=== PATIENT | female | born 1985 | race Caucasian/White ===

== ENCOUNTER 2016-10-28 19:35 | Emergency (ER) | payer BC, OTHER ==
[2016-10-28 19:56] VITALS: BP 142/90
--- NOTE | 2016-10-28 21:01 | EDM.PDOC ---
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 Staley this past January 2016, and was prescribed progesterone. This induced a menstrual period on 02/22/2016, however, the patient was to follow-up, but did not. She states that she has not had any menstrual periods since. In the meantime, the patient and her are trying to get , although the patient states that she has not taken a test. The patient therefore does not know if she is , and whether what she is currently experiencing is a heavy menstrual period or a miscarriage. She states that she developed suprapubic and low back cramping yesterday afternoon around 13:30, then heavy vaginal bleeding sometime after that. She rates her current bleeding at around one pad per hour, and states that while she is not aware of passing any tissue, she has passed clots. The patient denies urinary symptoms, and is not complaining of lightheadedness. She is . Lower Back Pain Score (Numeric/FACES): 7 - Related Data Allergies Allergy/AdvReac Type Severity Reaction Status Date / Time cefaclor [From Ceclor] Allergy Cannot Verified 10/28/16 19:43 Remember Home Meds: Home Meds . 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: 2 Endocrine/Metabolic History: Reports: Obesity/BMI 30+ - Past Surgical History HEENT Surgical History: Reports: Oral Surgery ([place] teeth extraction), Tonsillectomy GI Surgical History: Reports: Cholecystectomy Female Surgical History: Reports: Section (x 2) Social & Family History - Tobacco Use Smoking Status *Q: Never Smoker Second Hand Smoke Exposure: No - Caffeine Use Caffeine Use: Reports: Coffee, Soda - Alcohol Use Alcohol Use History: Yes Alcohol Use Frequency: Socially - Recreational Drug Use Recreational Drug Use: No - Living Situation & Occupation Living situation: Reports: , with Spouse, with Family (2 sons) 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) ED ROS GENERAL - Review of Systems Review Of Systems: See Below Constitutional: Reports: Chills HEENT: Reports: No Symptoms Respiratory: Reports: No Symptoms Cardiovascular: Reports: No Symptoms Endocrine: Reports: No Symptoms GI/Abdominal: Reports: No Symptoms : Reports: No Symptoms Musculoskeletal: Reports: No Symptoms Skin: Reports: No Symptoms Neurological: Reports: No Symptoms Psychiatric: Reports: No Symptoms Hematologic/Lymphatic: Reports: No Symptoms Immunologic: Reports: No Symptoms ED EXAM, GENERAL - Physical Exam Exam: See Below Exam Limited By: No Limitations General Appearance: Alert, WD/WN, No Apparent Distress Eye Exam: Bilateral Eye: Normal Inspection Ears: Normal External Exam, Hearing Grossly Normal Nose: Normal Inspection, No Blood Throat/Mouth: Normal Inspection, Normal Lips, Normal Voice, No Airway Compromise Head: Atraumatic, Normocephalic Neck: Normal Inspection, Full Range of Motion Respiratory/Chest: No Respiratory Distress, Lungs Clear, Normal Breath Sounds, No Accessory Muscle Use Cardiovascular: Normal Peripheral Pulses, Regular Rate, Rhythm, No Gallop, No JVD, No Murmur, No Rub Peripheral Pulses: 4+: Radial (L), Radial (R) GI/Abdominal: Normal Bowel Sounds, Soft, No Organomegaly, No Distention, No Abnormal Bruit, No Mass, Tender (suprapibic region only. Nontender elsewhere.) , Other (Obese) (Female) Exam: Deferred Rectal (Female) Exam: Deferred Back Exam: Normal Inspection, Full Range of Motion. No: CVA Tenderness (L), CVA Tenderness (R) Extremities: Normal Inspection, Normal Range of Motion, No Pedal Edema, Normal Capillary Refill Neurological: Alert, Oriented, Normal Cognition, No Motor/Sensory Deficits Psychiatric: Normal Affect Skin Exam: Warm, Dry, Intact, Normal Color, No Rash Lymphatic: No Adenopathy Course - Vital Signs Last Recorded V/S: Last Vital Signs Temp 37.0 C 10/28/16 19:53 Pulse 92 10/28/16 19:53 Resp 16 10/28/16 19:53 BP 142/90 H 10/28/16 19:53 Pulse Ox 100 10/28/16 19:53 - Orders/Labs/Meds Labs: Laboratory Tests 10/28/16 10/28/16 10/28/16 Range/Units 20:48 20:48 20:48 WBC 7.75 (3.98-10.04) K/mm3 RBC 4.45 (3.98-5.22) M/mm3 Hgb 13.0 (11.2-15.7) gm/L Hct 37.9 (34.1-44.9) % MCV 85.2 (79.4-94.8) fl MCH 29.2 (25.6-32.2) pg MCHC 34.3 (32.2-35.5) g/dl RDW Std Deviation 38.7 (36.4-46.3) fL Plt Count 234 (182-369) K/mm3 MPV 9.9 (9.4-12.3) fl Neutrophils % (Manual) 55 (40-60) % Band Neutrophils % 0 (0-10) % Lymphocytes % (Manual) 37 (20-40) % Atypical Lymphs % 0 % Monocytes % (Manual) 5 (2-10) % Eosinophils % (Manual) 3 (0.7-5.8) % Basophils % (Manual) 0 L (0.1-1.2) Platelet Estimate Adequate Plt Morphology Comment Normal RBC Morph Comment Normal Sodium 141 (136-145) mEq/L Potassium 3.7 (3.5-5.1) mEq/L Chloride 105 (98-107) mEq/L Carbon Dioxide 32 (21-32) mEq/L Anion Gap 7.7 (5-15) BUN 14 (7-18) mg/dL Creatinine 0.8 (0.55-1.02) mg/dL Est Cr Clr Drug Dosing 85.06 mL/min Estimated GFR (MDRD) > 60 (>60) mL/min BUN/Creatinine Ratio 17.5 (14-18) Glucose 99 (74-106) mg/dL Calcium 9.0 (8.5-10.1) mg/dL Total Bilirubin 0.2 (0.2-1.0) mg/dL AST 14 L (15-37) U/L ALT 23 (14-59) U/L Alkaline Phosphatase 62 (46-116) U/L Total Protein 7.6 (6.4-8.2) g/dl Albumin 3.7 (3.4-5.0) g/dl Globulin 3.9 gm/dL Albumin/Globulin Ratio 1.0 (1-2) HCG, Quant < 1.0 mIU/mL Blood Type 10/28/16 Range/Units 20:48 WBC (3.98-10.04) K/mm3 RBC (3.98-5.22) M/mm3 Hgb (11.2-15.7) gm/L Hct (34.1-44.9) % MCV (79.4-94.8) fl MCH (25.6-32.2) pg MCHC (32.2-35.5) g/dl RDW Std Deviation (36.4-46.3) fL Plt Count (182-369) K/mm3 MPV (9.4-12.3) fl Neutrophils % (Manual) (40-60) % Band Neutrophils % (0-10) % Lymphocytes % (Manual) (20-40) % Atypical Lymphs % % Monocytes % (Manual) (2-10) % Eosinophils % (Manual) (0.7-5.8) % Basophils % (Manual) (0.1-1.2) Platelet Estimate Plt Morphology Comment RBC Morph Comment Sodium (136-145) mEq/L Potassium (3.5-5.1) mEq/L Chloride (98-107) mEq/L Carbon Dioxide (21-32) mEq/L Anion Gap (5-15) BUN (7-18) mg/dL Creatinine (0.55-1.02) mg/dL Est Cr Clr Drug Dosing mL/min Estimated GFR (MDRD) (>60) mL/min BUN/Creatinine Ratio (14-18) Glucose (74-106) mg/dL Calcium (8.5-10.1) mg/dL Total Bilirubin (0.2-1.0) mg/dL AST (15-37) U/L ALT (14-59) U/L Alkaline Phosphatase (46-116) U/L Total Protein (6.4-8.2) g/dl Albumin (3.4-5.0) g/dl Globulin gm/dL Albumin/Globulin Ratio (1-2) HCG, Quant mIU/mL Blood Type O POSITIVE - Re-Assessments/Exams Free Text/Narrative Re-Assessment/Exam: 10/28/16 22:17 Test results discussed with the patient. Her quantitative hCG is undetectable, indicating no recent . Her heavy menstrual bleeding appears to be a long-overdue menstrual period. The underlying process that is causing her to have infrequent menstrual periods still exists, therefore I am recommending that she follow-up with Dr. Staley for further evaluation and treatment. Departure - Departure Time of Disposition: 22:19 Disposition: Home, Self-Care 01 Condition: Good Clinical Impression: Menstrual periods, abnormal - Discharge Information Referrals: Agnieszka Staley MD [Primary Care Provider] - Forms: ED Department Discharge Additional Instructions: You were seen in the emergency room for heavy vaginal bleeding along with pelvic and low back cramping. Workup in the ER included a CBC, CMP, and quantitative hCG ( hormone). Your hCG returned undetectable, indicating no recent . You are experiencing a heavy menstrual period, not a miscarriage. Take [id number] ibuprofen as needed for discomfort. We recommend you follow-up with Dr. Staley for further evaluation and treatment of your irregular periods. If any other problems, please do not hesitate to return to the ER.
== END 2016-10-28 22:34 | disposition home or self-care (01) ==
LOC: JD.ED 19:35
DX: N94.89 Other specified conditions associated with female genital organs and menstrual cycle (principal); E66.9 Obesity, unspecified; Z90.49 Acquired absence of other specified parts of digestive tract; Z98.890 Other specified postprocedural states; Z88.1 Allergy status to other antibiotic agents; Z68.32 Body mass index [BMI] 32.0-32.9, adult
CPT/HCPCS: 36415; 80053; 84702; 85025; 86900; 86901; 99283; 99284

== ENCOUNTER 2016-11-29 06:07 | Emergency (ER) | payer OTHER ==
[2016-11-29 06:17] VITALS: BP 138/88
[2016-11-29] MEDS ORDERED: Penicillin G Benzathine 1,200,000 Units/2 ML Syringe IM ONE (06:25)
[2016-11-29] MEDS ORDERED: Acetaminophen/oxyCODONE 325-5 MG Tab PO ONE (06:36)
--- NOTE | 2016-11-29 06:37 | EDM.PDOC ---
ED HPI GENERAL MEDICAL PROBLEM - General Chief Complaint: ENT Problem Stated Complaint: DENTAL COMPLAINT Time Seen by Provider: 11/29/16 06:11 Source of Information: Reports: Patient History Limitations: Reports: No Limitations - History of Present Illness INITIAL COMMENTS - FREE TEXT/NARRATIVE: Is a 31-year-old female. She noted some swelling in her right cheek yesterday afternoon that is continue to swell through the night and she comes to the ER this morning. The swelling has progressed some she complains of her right upper back molar is being tender. She does have a dentist in this area and she is going to call him on Wednesday for an appointment to be seen. I explained to her that this could just be soft tissue swelling or if it stays long enough and can turn into an abscess which is never good on the face. She's had no fever no chills no nausea vomiting or diarrhea. 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: Endocrine/Metabolic History: Reports: Obesity/BMI 30+ - Past Surgical History HEENT Surgical History: Reports: Oral Surgery, Tonsillectomy GI Surgical History: Reports: Cholecystectomy Female Surgical History: Reports: Section Social & Family History - Family History Family Medical History: Noncontributory - Tobacco Use Smoking Status *Q: Never Smoker Second Hand Smoke Exposure: No - Caffeine Use Caffeine Use: Reports: Coffee, Soda - Recreational Drug Use Recreational Drug Use: No - Living Situation & Occupation Living situation: Reports: , with Spouse, with Family (2 sons) 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) ED ROS ENT - Review of Systems Review Of Systems: See Below Constitutional: Denies: Fever, Chills HEENT: Reports: Dental Pain, Other (Right facial swelling) Respiratory: Reports: No Symptoms Cardiovascular: Reports: No Symptoms Endocrine: Reports: No Symptoms GI/Abdominal: Reports: No Symptoms : Reports: No Symptoms Musculoskeletal: Reports: No Symptoms Skin: Reports: No Symptoms Neurological: Reports: No Symptoms Psychiatric: Reports: No Symptoms Hematologic/Lymphatic: Reports: No Symptoms ED EXAM, ENT - Physical Exam Exam: See Below Exam Limited By: No Limitations General Appearance: Alert, WD/WN, No Apparent Distress Eye Exam: Bilateral Eye: Normal Inspection Ears: Normal External Exam Nose: Normal Inspection Mouth/Throat: Other (The right back molar #1 is tender on touching, the gum does not appear to be swollen there is no obvious bulging to suggest an abscess , the other teeth appear to be in fair repair, the right cheek is basically a swollen tissues at all feeling fluctuance or evidence of an abscess palpation of that cheek does not cause any head taste or drainage into her mouth) Head: Normocephalic Neck: Supple Respiratory/Chest: No Respiratory Distress Cardiovascular: No Edema Back: Full Range of Motion Extremities: Normal Inspection, Normal Range of Motion Neurological: Alert, Oriented Psychiatric: Normal Affect, Normal Mood Skin: Warm, Dry Course - Vital Signs Last Recorded V/S: Last Vital Signs Temp 98.2 F 11/29/16 06:14 Pulse 98 11/29/16 06:14 Resp 18 11/29/16 06:14 BP 138/88 11/29/16 06:14 Pulse Ox 100 11/29/16 06:14 - Orders/Labs/Meds Orders: Active Orders 24 hr Category Date Time Status Penicillin G Benzathine [Bicillin L-A] Med 11/29/16 06:25 Once 1.2 millunits IM ONETIME ONE Meds: Medications Discontinued Medications Generic Name Dose Route Start Last Admin Trade Name Freq PRN Reason Stop Dose Admin Penicillin G Benzathine 1.2 millunits 11/29/16 06:25 Bicillin L-A IM 11/29/16 06:26 ONETIME ONE Departure - Departure Time of Disposition: 06:39 Disposition: Home, Self-Care 01 Condition: Good Clinical Impression: Dental infection, Pain, dental, Cheek swelling - Discharge Information Prescriptions: Hydrocodone/Acetaminophen [Hydrocodon-Acetaminophen 5-325] 1 each PO Q6H PRN # 12 tablet PRN Reason: Pain Penicillin V Potassium [IJD: Penicillin V Potassium] 500 mg PO .EVERY 6 HOURS # 40 tab Referrals: Agnieszka Staley MD [Primary Care Provider] - Additional Instructions: Take the antibiotics faithfully starting Wednesday, call your dentist on Wednesday for an appointment this week, use the medicines as needed for pain, if this cheek continues to swell and you notice any sort of drainage inside your mouth or if you develop fever greater than 101 you need to return to the ER, otherwise return to the ER as needed - My Orders Last 24 Hours: My Active Orders 11/29/16 06:25 Penicillin G Benzathine [Bicillin L-A] 1.2 millunits IM ONETIME ONE - Assessment/Plan Last 24 Hours: My Active Orders 11/29/16 06:25 Penicillin G Benzathine [Bicillin L-A] 1.2 millunits IM ONETIME ONE
== END 2016-11-29 06:53 | disposition home or self-care (01) ==
LOC: JD.ED 06:07
DX: K04.7 Periapical abscess without sinus (principal); R22.0 Localized swelling, mass and lump, head; Z88.1 Allergy status to other antibiotic agents; E66.9 Obesity, unspecified
CPT/HCPCS: 96372; 99282; A9270; J0561; 99283

== ENCOUNTER 2016-11-29 12:11 | Emergency (ER) | payer OTHER ==
[2016-11-29 12:27] VITALS: BP 147/92
--- NOTE | 2016-11-29 13:15 | EDM.PDOC ---
ED HPI GENERAL MEDICAL PROBLEM - General Chief Complaint: ENT Problem Stated Complaint: DENTAL COMPLAINT-WORSE THAN THIS MORNING Time Seen by Provider: 11/29/16 12:41 Source of Information: Reports: Patient History Limitations: Reports: No Limitations - History of Present Illness INITIAL COMMENTS - FREE TEXT/NARRATIVE: Patient is a 31-year-old female who presents to the ED complaining of increased swelling to her right cheek. States she was diagnosed with a dental abscess , administered IM injection of antibiotic, sent home with narcotic medications, and oral antibiotic. States over the course of the evening the swelling has worsened. Pain is minimally changed. She is mildly nauseated. Denies any fever/ chills, vomiting, diarrhea, difficultly the swallowing, or any additional complaints. Antibiotic she is currently taking is Pen-Vee K. She was administered Bicillin long-acting. She has been taking the [place] as prescribed. She denies being . There is no additional past medical history and does not smoke. 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/Metabolic History: Reports: Obesity/BMI 30+ - Past Surgical History HEENT Surgical History: Reports: Oral Surgery, Tonsillectomy GI Surgical History: Reports: Cholecystectomy Female Surgical History: Reports: Section Social & Family History - Family History Family Medical History: Noncontributory - Tobacco Use Smoking Status *Q: Never Smoker Second Hand Smoke Exposure: No - Caffeine Use Caffeine Use: Reports: Coffee - Recreational Drug Use Recreational Drug Use: No - Living Situation & Occupation Living situation: Reports: , with Spouse, with Family (2 sons) 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 ED EXAM, ENT - Physical Exam Exam: See Below Exam Limited By: No Limitations General Appearance: Alert, WD/WN, No Apparent Distress Eye Exam: Bilateral Eye: PERRL Ears: Hearing Grossly Normal Nose: Normal Inspection Mouth/Throat: Other (Dental work noted to the right upper jaw #32-30 teeth. Swelling noted to the right cheek with minimal pain present on palpation. No fluctuance noted with palpation of the upper gumline. No drainage noted. Uvula is midline with no difficulty swallowing noted per patient. She's controlling all her oral secretions.) Head: Atraumatic, Normocephalic Neck: Normal Inspection, Supple, Non-Tender, Full Range of Motion. No: Lymphadenopathy (L), Lymphadenopathy (R) Respiratory/Chest: No Respiratory Distress, Lungs Clear, Normal Breath Sounds, Chest Non-Tender Cardiovascular: Normal Peripheral Pulses, Regular Rate, Rhythm Neurological: Alert, Oriented, CN II-XII Intact, Normal Cognition, No Motor/ Sensory Deficits Psychiatric: Normal Affect, Normal Mood Skin: Warm, Dry, Intact, Normal Color Course - Vital Signs Last Recorded V/S: Last Vital Signs Temp 98.5 F 11/29/16 12:26 Pulse 96 11/29/16 12:26 Resp 20 11/29/16 12:26 BP 147/92 H 11/29/16 12:26 Pulse Ox 100 11/29/16 12:26 - Re-Assessments/Exams Free Text/Narrative Re-Assessment/Exam: Performed bedside ultrasound myself to evaluate for any obvious pus pockets that may be drained. Nothing was visualized. Inflammatory changes noted. Offered to the patient to have a CT obtained to evaluate for abscess. Patient has refused and will discolor home on the current course of antibiotics and pain medications as prescribed. She will return back to the ED if she should have any worsening symptoms. She has appointment with her dentist tomorrow. The patient discharged with instructions as documented. Departure - Departure Time of Disposition: 13:17 Disposition: Home, Self-Care 01 Condition: Good Clinical Impression: Dental infection - Discharge Information Instructions: Dental Abscess Referrals: Agnieszka Staley MD [Primary Care Provider] - Forms: ED Department Discharge, ED Return to Work/School Form Additional Instructions: Take the full course of oral antibiotic as prescribed. Suggest taking a probiotic while on antibiotics. Take ibuprofen 600 mg every 6 hours and Tylenol 650 mg every 6 hours and alternate fashion for pain. For severe pain take [place] one tab every [address] not drive while taking the [place]. See her dentist tomorrow for definitive treatment. Beware of the swelling may increase over the next 12-24 hours until antibiotic reaches therapeutic level. Return to the ED for any new or worsening symptoms as discussed.
== END 2016-11-29 13:44 | disposition home or self-care (01) ==
LOC: JD.ED 12:11
DX: K04.7 Periapical abscess without sinus (principal); Z88.1 Allergy status to other antibiotic agents; E66.9 Obesity, unspecified; Z98.890 Other specified postprocedural states
CPT/HCPCS: 99282; 99283

== ENCOUNTER 2017-01-23 17:40 | Emergency (ER) | payer OTHER ==
[2017-01-23 18:01] VITALS: BP 139/99
--- NOTE | 2017-01-23 18:06 | EDM.PDOC ---
ED HPI GENERAL MEDICAL PROBLEM - General Chief Complaint: Laceration Stated Complaint: CUT RING FINGER ON R HAND Time Seen by Provider: 01/23/17 17:50 Source of Information: Reports: Patient - History of Present Illness INITIAL COMMENTS - FREE TEXT/NARRATIVE: Patient is a 31 y/o female who presents to the E.D. complaining of avulsion wound to the distal phalanx of the right third finger. States she was cutting potatoes using a slicing board. Accidentally taking part of the distal tip of her right ring finger off. Bleeding has not stopped with direct pressure and dressing applied. Tetanus status up-to-date. Minimal pain present. No sensory deficits noted. No other complaints. Of note patient is 11 weeks . Right Hand Pain Score (Numeric/FACES): 5 - Related Data Allergies Allergy/AdvReac Type Severity Reaction Status Date / Time cefaclor [From Ceclor] Allergy Cannot Verified 01/23/17 17:54 Remember Home Meds: Home Meds Vitamins. 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/Metabolic History: Reports: Obesity/BMI 30+ - Past Surgical History HEENT Surgical History: Reports: Oral Surgery, Tonsillectomy GI Surgical History: Reports: Cholecystectomy Female Surgical History: Reports: Section Social & Family History - Family History Family Medical History: Noncontributory - Tobacco Use Smoking Status *Q: Never Smoker Second Hand Smoke Exposure: No - Caffeine Use Caffeine Use: Reports: Coffee - Recreational Drug Use Recreational Drug Use: No - Living Situation & Occupation Living situation: Reports: , with Spouse, with Family (2 sons) 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 ED EXAM, SKIN/RASH Exam: See Below Exam Limited By: No Limitations General Appearance: Alert, WD/WN, No Apparent Distress Ears: Hearing Grossly Normal Nose: Normal Inspection Throat/Mouth: Normal Voice, No Airway Compromise Neck: Normal Inspection, Supple Respiratory/Chest: No Respiratory Distress, No Accessory Muscle Use Cardiovascular: Normal Peripheral Pulses, Regular Rate, Rhythm Peripheral Pulses: 2+: Radial (R) Extremities: Other (1 cm x 0.5 cm avulsion wound to the distal phalanx tip right fourth finger. Bleeding persists. No sensory/motor deficits present. No other complaints on examination.) Neurological: Alert, Oriented, CN II-XII Intact, Normal Cognition, No Motor/ Sensory Deficits Psychiatric: Normal Affect, Normal Mood Skin: Warm, Dry, Normal Color Course - Vital Signs Last Recorded V/S: Last Vital Signs Temp 97.9 F 01/23/17 17:55 Pulse 90 01/23/17 17:55 Resp 16 01/23/17 17:55 BP 139/99 H 01/23/17 17:55 Pulse Ox 100 01/23/17 17:55 - Re-Assessments/Exams Free Text/Narrative Re-Assessment/Exam: Applied Surgicel to the right ring finger distal phalanx were avulsion wound is present. This was covered with 4 x 4's with direct pressure held by patient. Pulled surgicel off only to restart bleeding. Placed another piece of surgicel to the wound with 4x4's and direct pressure. 01/23/17 19:12 Reassessment, bleeding has subsided. Will not pull off surgicel in fear it will start bleeding again. Thus will have dressing placed. Discharge instructions as documented. Departure - Departure Time of Disposition: 19:15 Disposition: Home, Self-Care 01 Condition: Good Clinical Impression: Avulsion of skin of finger Qualifiers: Encounter type: initial encounter Qualified Code(s): S61.209A - Unspecified open wound of unspecified finger without damage to nail, initial encounter - Discharge Information Instructions: Laceration Care, Adult, [id number] Referrals: Agnieszka Staley MD [Primary Care Provider] - Forms: ED Department Discharge Additional Instructions: As discussed leave dressing in place until tomorrow morning. Run lukewarm water over the dressing to remove the Surgicel. Gently pull on it. It is source of bleeding again reapply Surgicel to the affected area with 4 x 4's and will direct pressure. Leave in place for another 12 hours. If bleeding subsides cleanse site twice daily with soap and water, pat dry, reapply triple antibiotics ointment and dressing. Return to the ED if bleeding persist As discussed leave dressing in place until tomorrow morning. Run lukewarm water over the dressing to remove the Surgicel. Gently pull on it. It is source of bleeding again reapply Surgicel to the affected area with 4 x 4's and will direct pressure. Leave in place for another 12 hours. If bleeding subsides cleanse site twice daily with soap and water, pat dry, reapply triple antibiotics ointment and dressing. Return to the ED if bleeding persist
== END 2017-01-23 19:38 | disposition home or self-care (01) ==
LOC: JD.ED 17:40
DX: O9A.211 Injury, poisoning and certain other consequences of external causes complicating pregnancy, first trimester (principal); S61.204A Unspecified open wound of right ring finger without damage to nail, initial encounter; Z88.1 Allergy status to other antibiotic agents; W45.8XXA Other foreign body or object entering through skin, initial encounter
CPT/HCPCS: 99282; 99283

== ENCOUNTER 2017-01-24 19:21 | Emergency (ER) | payer OTHER ==
[2017-01-24 19:38] VITALS: BP 141/100
--- NOTE | 2017-01-24 19:52 | EDM.PDOC ---
ED HPI GENERAL MEDICAL PROBLEM - General Chief Complaint: Laceration Stated Complaint: FINGER ISSUES Time Seen by Provider: 01/24/17 19:52 Source of Information: Reports: Patient History Limitations: Reports: No Limitations - History of Present Illness INITIAL COMMENTS - FREE TEXT/NARRATIVE: Patient is a 31 y/o female who presents to the E.D. complaining of avulsion wound to the distal phalanx of the right third finger. States she was cutting potatoes using a slicing board. Accidentally taking part of the distal tip of her right ring finger off. Patient was evaluated in the E.D. by me since the bleeding would not stop. Placed surgicel with dressing to the affected finger with instruciotions to soak the finger and remove this morning. Patient states she removed the surgicel this a.m. with bleeding again. Another small piece of surgicel applied and unable to remove it this afternoon due to the fear of bleeding will start again. Tetanus status up-to-date. Minimal pain present. No sensory deficits noted. No other complaints. Of note patient is 11 weeks . 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: Endocrine/Metabolic History: Reports: Obesity/BMI 30+ - Past Surgical History HEENT Surgical History: Reports: Oral Surgery, Tonsillectomy GI Surgical History: Reports: Cholecystectomy Female Surgical History: Reports: Section Social & Family History - Family History Family Medical History: Noncontributory - Tobacco Use Smoking Status *Q: Never Smoker Second Hand Smoke Exposure: No - Caffeine Use Caffeine Use: Reports: Coffee - Recreational Drug Use Recreational Drug Use: No - Living Situation & Occupation Living situation: Reports: , with Spouse, with Family (2 sons) Occupation: Employed ([employer]) ED ROS GENERAL - Review of Systems Review Of Systems: ROS reveals no pertinent complaints other than HPI. ED EXAM, SKIN/RASH Exam: See Below Exam Limited By: No Limitations General Appearance: Alert, WD/WN, No Apparent Distress Ears: Hearing Grossly Normal Nose: Normal Inspection Throat/Mouth: Normal Voice, No Airway Compromise Neck: Normal Inspection, Supple Respiratory/Chest: No Respiratory Distress, No Accessory Muscle Use Cardiovascular: Normal Peripheral Pulses, Regular Rate, Rhythm Peripheral Pulses: 2+: Radial (R) Extremities: Other (Right 3rd finger. Surgicel to the distal phalanx with no bleeding present. No signs of infection. ) Neurological: Alert, Oriented, CN II-XII Intact, No Motor/Sensory Deficits Psychiatric: Normal Affect, Normal Mood Skin: Warm, Dry Course - Vital Signs Last Recorded V/S: Last Vital Signs Temp 97.7 F 01/24/17 19:37 Pulse 90 01/24/17 19:37 Resp 16 01/24/17 19:37 BP 141/100 H 01/24/17 19:37 Pulse Ox 100 01/24/17 19:37 - Re-Assessments/Exams Free Text/Narrative Re-Assessment/Exam: Finger was soaked in peroxide and sterile water. Surgicel was removed with no bleeding present. Bacitracin applied with dressing. Will discharge home with instructions as documented. Departure - Departure Time of Disposition: 20:59 Disposition: Home, Self-Care 01 Condition: Good Clinical Impression: Avulsion of skin of finger Qualifiers: Encounter type: initial encounter Qualified Code(s): S61.209A - Unspecified open wound of unspecified finger without damage to nail, initial encounter - Discharge Information Instructions: Deep Skin Avulsion Referrals: Agnieszka Staley MD [Primary Care Provider] - Forms: ED Department Discharge Additional Instructions: Cleanse site twice daily with soap and water, reapply triple antibiotics ointment, and dressing. Keep area clean and dry. Do not soak wound. It will take approximately 7-10 days to completely heal. Return to the ED if you develop any new or worsening symptoms.
== END 2017-01-24 21:25 | disposition home or self-care (01) ==
LOC: JD.ED 19:21
DX: S61.202A Unspecified open wound of right middle finger without damage to nail, initial encounter (principal); Z88.1 Allergy status to other antibiotic agents; W26.8XXA Contact with other sharp object(s), not elsewhere classified, initial encounter
CPT/HCPCS: 99282; 99283

== ENCOUNTER 2017-08-05 12:14 | Inpatient (IN) | payer OTHER ==
[2017-08-05] MEDS ORDERED: Citric Acid/Sodium Citrate Solution 30 ML Cup PO ONE ×2 (14:26→14:29)
[2017-08-05] MEDS ORDERED: Metoclopramide 10 MG/2 ML SDV IVPUSH ONE ×2 (14:26→14:29)
[2017-08-05] MEDS ORDERED: Sodium Chloride 0.9% 10 ML Syringe FLUSH PRN ×2 (14:26→14:29)
[2017-08-05] MEDS ORDERED: Ondansetron 4 MG/2 ML SDV IVPUSH PRN (14:29)
[2017-08-05] MEDS ORDERED: Lactated Ringers 1,000 ML IV SCH (14:30)
[2017-08-05] MEDS ORDERED: Oxytocin/Lactated Ringers 10 UNIT/1,000 ML BAG IV SCH (14:30)
--- NOTE | 2017-08-05 14:33 | PCM.LDHP ---
L&D History of Present Illness - General Date of Service: 08/05/17 Admit Problem/Dx: Patient Status Order with Admit Dx/Problem 08/05/17 12:45 Patient Status [ADT] Routine 08/05/17 14:26 Patient Status [ADT] Routine 08/05/17 14:29 Patient Status [ADT] Routine Admission Diagnosis/Problem Admission Diagnosis/Problem Source of Information: Patient History Limitations: Reports: No Limitations - History of Present Illness Introduction:: Patient is a 32-year-old 002 at 39-0/7 weeks gestation who presents today for further evaluation after clinic appointment. Had her routine appointment earlier today where she was found to have blood pressures of 134/94 and 142/98. She was otherwise feeling well. Denied headaches, vision changes, right upper quadrant pain. Was having some cramping and contractions in the last few days. No bleeding or loss of fluid. 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 LMP (Approximate): Endocrine/Metabolic History: Reports: Obesity/BMI 30+ - Past Surgical History HEENT Surgical History: Reports: Oral Surgery, Tonsillectomy GI Surgical History: Reports: Cholecystectomy Female Surgical History: Reports: Section (2010, 2011) Social & Family History - Family History Family Medical History: Noncontributory - Tobacco Use Smoking Status *Q: Never Smoker - Caffeine Use Caffeine Use: Reports: Coffee - Alcohol Use Alcohol Use History: No - Recreational Drug Use Recreational Drug Use: No - Living Situation & Occupation Living situation: Reports: , with Spouse, with Family (2 sons) 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) H&P Review of Systems - Review of Systems: Review Of Systems: See Below General: Reports: No Symptoms Pulmonary: Reports: No Symptoms Cardiovascular: Reports: No Symptoms Gastrointestinal: Reports: No Symptoms Genitourinary: Reports: No Symptoms Musculoskeletal: Reports: No Symptoms Psychiatric: Reports: No Symptoms Neurological: Reports: No Symptoms L&D Exam - Exam Exam: See Below - Vital Signs Vital Signs: Last Vital Signs Temp 36.8 C 08/05/17 12:45 Pulse 80 08/05/17 12:45 Resp 18 08/05/17 12:45 BP 138/89 08/05/17 12:45 Pulse Ox Weight: 92.703 kg - OB Specific Contraction Intensity: Mild to Moderate Movement: Active Heart Tones: Present Heart Tones per Min: 135 Heart Rate (FHR) Variability: Moderate (6-25 bmp) Presentation: Unable to Assess - Varela Score Varela Score Cervix Position: Midposition Varela Score Consistency: Medium Varela Score Effacement: 0-30% Varela Score Dilation: Closed Varela Score Infant's Station: -3 Varela Score Total: 2 - Exam General: Alert, Oriented, Cooperative Lungs: Clear to Auscultation, Normal Respiratory Effort Cardiovascular: Regular Rate, Regular Rhythm GI/Abdominal Exam: Soft, Non-Tender Rectal Exam: Normal Exam Genitourinary: Normal external exam Extremities: Normal Inspection Skin: Warm, Dry, Intact - Patient Data Lab Results Last 24 hrs: Laboratory Results - last 24 hr 08/05/17 08/05/17 08/05/17 Range/Units 12:56 12:56 13:05 WBC 10.55 H (3.98-10.04) K/mm3 RBC 4.24 (3.98-5.22) M/mm3 Hgb 12.4 (11.2-15.7) gm/L Hct 36.2 (34.1-44.9) % MCV 85.4 (79.4-94.8) fl MCH 29.2 (25.6-32.2) pg MCHC 34.3 (32.2-35.5) g/dl RDW Std Deviation 44.6 (36.4-46.3) fL Plt Count 177 L (182-369) K/mm3 MPV 10.1 (9.4-12.3) fl Neut % (Auto) 76.0 H (34.0-71.1) % Lymph % (Auto) 18.4 L (19.3-51.7) % [place] % (Auto) 4.4 L (4.7-12.5) % Eos % (Auto) 0.7 (0.7-5.8) Baso % (Auto) 0.2 (0.1-1.2) % Neut # (Auto) 8.03 H (1.56-6.13) K/mm3 Lymph # (Auto) 1.94 (1.18-3.74) K/mm3 [place] # (Auto) 0.46 H (0.24-0.36) K/mm3 Eos # (Auto) 0.07 (0.04-0.36) K/mm3 Baso # (Auto) 0.02 (0.01-0.08) K/mm3 BUN 9 (7-18) mg/dL Creatinine 0.6 (0.55-1.02) mg/dL Est Cr Clr Drug Dosing 112.38 mL/min Estimated GFR (MDRD) > 60 (>60) mL/min Uric Acid 5.6 (2.6-6.0) mg/dL AST 20 (15-37) U/L ALT 18 (14-59) U/L Lactate Dehydrogenase 148 (81-234) U/L Urine Color Yellow (Yellow) Urine Appearance Slt cloudy H (Clear) Urine pH 7.0 (5.0-8.0) Ur Specific [place] 1.015 (1.005-1.030) Urine Protein Negative (Negative) Urine Glucose (UA) Negative (Negative) Urine Ketones Negative (Negative) Urine Occult Blood Negative (Negative) Urine Nitrite Negative (Negative) Urine Bilirubin Negative (Negative) Urine Urobilinogen 0.2 (0.2-1.0) Ur Leukocyte Esterase 1+ H (Negative) Result Diagrams: 08/05/17 12:56 08/05/17 12:56 - Problem List (1) 39 weeks gestation of SNOMED Code(s): 69396230 ICD Code: Z3A.39 - 39 WEEKS GESTATION OF Status: Acute Current Visit: Yes (2) History of SNOMED Code(s): 988296008 ICD Code: Z98.891 - HISTORY OF UTERINE SCAR FROM PREVIOUS SURGERY Status: Acute Current Visit: Yes (3) Elevated blood pressure affecting in third trimester, antepartum SNOMED Code(s): 88798691, 74688109, 378460633 ICD Code: O16.3 - UNSPECIFIED MATERNAL HYPERTENSION, THIRD TRIMESTER Status : Acute Current Visit: Yes Problem List Initiated/Reviewed/Updated: Yes Orders Last 24hrs: Active Orders 24 hr Category Date Time Status Patient Status [ADT] Routine ADT 08/05/17 14:26 Active Patient Status [ADT] Routine ADT 08/05/17 14:29 Ordered Communication Order [RC] ROUTINE Care 08/05/17 14:26 Ordered Communication Order [RC] ROUTINE Care 08/05/17 14:29 Ordered Heart Tones [RC] PER UNIT ROUTINE Care 08/05/17 14:26 Ordered Heart Tones [RC] PER UNIT ROUTINE Care 08/05/17 14:29 Ordered Monitoring [RC] CONTINUOUS Care 08/05/17 12:46 Active Non Stress Test [RC] PER UNIT ROUTINE Care 08/05/17 12:45 Active Peripheral IV Care [RC] . DIRECTED Care 08/05/17 14:27 Ordered Peripheral IV Care [RC] . DIRECTED Care 08/05/17 14:30 Ordered Procedure Site Prep Instruct [RC] ASDIRECTED Care 08/05/17 14:26 Ordered Procedure Site Prep Instruct [RC] ASDIRECTED Care 08/05/17 14:29 Ordered Up ad Ana [RC] ASDIRECTED Care 08/05/17 12:46 Active Urinary Catheter Assessment [RC] ASDIRECTED Care 08/05/17 14:26 Ordered Verify Patient Consent Obtain [RC] PER UNIT ROUTINE Care 08/05/17 14:26 Ordered Verify Patient Consent Obtain [RC] PER UNIT ROUTINE Care 08/05/17 14:29 Ordered Vital Signs [RC] PER UNIT ROUTINE Care 08/05/17 12:45 Active Vital Signs [RC] PFP Care 08/05/17 14:26 Ordered Vital Signs [RC] PFP Care 08/05/17 14:29 Ordered Nothing Per Oral Diet [DIET] Diet 08/05/17 Lunch Active TYPE AND SCREEN [BBK] Routine Lab 08/05/17 14:26 Ordered TYPE AND SCREEN [BBK] Routine Lab 08/05/17 14:29 Ordered UA W/O MICROSCOPIC [URIN] Stat Lab 08/05/17 13:05 Ordered Citric Acid/Sodium Citrate [Bicitra Solution] Med 08/05/17 14:26 Once 30 ml PO ONETIME ONE Citric Acid/Sodium Citrate [Bicitra Solution] Med 08/05/17 14:29 Once 30 ml PO ONETIME ONE Clindamycin Phosphate [Cleocin] 900 mg Med 08/05/17 14:29 Ordered Sodium Chloride 0.9% [Normal Saline] 100 ml IV ONETIME Gentamicin 460 mg Med 08/05/17 14:29 Ordered Sodium Chloride 0.9% [Normal Saline] 100 ml IV ONETIME Lactated Ringers @ 125 MLS/HR(1000ml) Med 08/05/17 14:30 Ordered Lactated Ringers [Ringers, Lactated] 1,000 ml IV ASDIRECTED Lactated Ringers @ 125 MLS/HR(1000ml) Med 08/05/17 14:30 Ordered Lactated Ringers [Ringers, Lactated] 1,000 ml IV ASDIRECTED Metoclopramide [Reglan] Med 08/05/17 14:26 Once 10 mg IVPUSH ONETIME ONE Metoclopramide [Reglan] Med 08/05/17 14:29 Once 10 mg IVPUSH ONETIME ONE Ondansetron [Zofran] Med 08/05/17 14:29 Ordered 4 mg IVPUSH Q4H PRN Oxytocin/Lactated Ringers [Pitocin in LR 10 Units/1,000 Med 08/05/17 14:30 Ordered ML] 10 unit in 1,000 ml IV ASDIRECTED Sodium Chloride 0.9% [Saline Flush] Med 08/05/17 14:26 Ordered 10 ml FLUSH ASDIRECTED PRN Sodium Chloride 0.9% [Saline Flush] Med 08/05/17 14:29 Ordered 10 ml FLUSH ASDIRECTED PRN PIH Panel [OM.PC] Stat Ot 08/05/17 12:45 Ordered Peripheral IV Insertion Adult [OM.PC] Routine Ot 08/05/17 14:26 Ordered Peripheral IV Insertion Adult [OM.PC] Routine Ot 08/05/17 14:29 Ordered Schedule Procedure [COMM] Per Unit Routine Ot 08/05/17 14:26 Ordered Schedule Procedure [COMM] Per Unit Routine Ot 08/05/17 14:29 Ordered Resuscitation Status Routine Resus Stat 08/05/17 12:45 Ordered Medication Orders Citric Acid/Sodium Citrate (Bicitra Solution) 30 ml PO ONETIME ONE Stop: 08/05/17 14:27 Lactated Ringer's (Ringers, Lactated) 1,000 mls @ 125 mls/hr IV ASDIRECTED ABUNDIO Metoclopramide HCl (Reglan) 10 mg IVPUSH ONETIME ONE Stop: 08/05/17 14:27 Sodium Chloride (Saline Flush) 10 ml FLUSH ASDIRECTED PRN PRN Reason: Keep Vein Open Assessment/Plan Comment:: 32 y/o at 39 0/7 wks who presented for further monitoring after elevated BP in clinic. BP's have been normal in L&D, but now with contractions. Reviewed options going forward and patient would like to proceed with RLTCS. 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
[2017-08-05] MEDS ORDERED: Clindamycin Phosphate 900 MG in Sodium Chloride 0.9% 100 ML IV ONE (15:00)
[2017-08-05] MEDS: Lactated Ringers 1,000 ML IV SCH ×2 (15:25→16:11)
[2017-08-05] MEDS ORDERED: Gentamicin 460 MG in Dextrose 5% in Water 100 ML IV ONE ×2 (15:45)
[2017-08-05] MEDS ORDERED: Morphine PF 10 MG/10 ML SDV ONE (15:45)
[2017-08-05] MEDS ORDERED: Phenylephrine 1% 10 MG/ML SDV ONE (15:45)
[2017-08-05] MEDS ORDERED: ceFAZolin 1 GM Vial ONE (15:45)
[2017-08-05] MEDS ORDERED: Bupivacaine 0.75%/D5W 2 ML Amp ONE (15:48)
[2017-08-05] MEDS ORDERED: Clindamycin Phosphate 900 MG/6 ML AdvVial ONE (16:39)
[2017-08-05] MEDS ORDERED: Sodium Chloride 0.9% 100 ML ONE (16:40)
[2017-08-05] MEDS ORDERED: Ketorolac 30 MG/ML SDV ONE (16:53)
[2017-08-05] MEDS ORDERED: Oxytocin 10 Units/1 ML SDV ONE (16:53)
[2017-08-05] MEDS ORDERED: Lactated Ringers 1,000 ML ONE ×2 (17:16→17:18)
--- NOTE | 2017-08-05 17:36 | PCM.POSTAN ---
POST ANESTHESIA ASSESSMENT - MENTAL STATUS Mental Status: Alert, Oriented - VITAL SIGNS Pulse Rate: 86 SaO2: 96 Resp Rate: 12 Blood Pressure: 122/78 Temperature: 36.6 C - RESPIRATORY Respiratory Status: Respiratory Rate WNL, Airway Patent, O2 Saturation Stable - CARDIOVASCULAR CV Status: Pulse Rate WNL, Blood Pressure Stable - GASTROINTESTINAL GI Status: No Symptoms - PAIN Pain Score: 0 - POST OP HYDRATION Hydration Status: Adequate & Stable - OBSERVATIONS Free Text/Narrative:: no anesthesia complications noted
--- NOTE | 2017-08-05 17:37 | PCM.PREANE ---
Preanesthetic Assessment - Anesthesia/Transfusion/Family Hx Anesthesia History: Prior Anesthesia Without Reaction Family History of Anesthesia Reaction: No Transfusion History: No Prior Transfusion(s) - Review of Systems General: No Symptoms Pulmonary: No Symptoms Cardiovascular: No Symptoms Gastrointestinal: No Symptoms Neurological: No Symptoms Other: Reports: None - Physical Assessment NPO Status Date: 08/05/17 NPO Status Time: 08:00 Pulse: 86 O2 Sat by Pulse Oximetry: 96 Respiratory Rate: 12 Blood Pressure: 122/78 Temperature: 36.6 C Vital Signs: Last Vital Signs Temp 36.6 C 08/05/17 17:36 Pulse 86 08/05/17 17:36 Resp 12 08/05/17 17:36 BP 122/78 08/05/17 17:36 Pulse Ox 96 08/05/17 17:36 Height: 1.6 m Weight: 92.703 kg ASA Class: 2 Mental Status: Alert & Oriented x3 Airway Class: Mallampati = 1 Dentition: Reports: Normal Dentition Thyro-Mental Finger Breadths: 3 Mouth Opening Finger Breadths: 3 ROM/Head Extension: Full Lungs: Clear to Auscultation, Normal Respiratory Effort Cardiovascular: Regular Rate, Regular Rhythm, No Murmurs - Lab Values: Laboratory Last Values WBC 10.55 K/mm3 (3.98-10.04) H 08/05/17 12:56 RBC 4.24 M/mm3 (3.98-5.22) 08/05/17 12:56 Hgb 12.4 gm/L (11.2-15.7) 08/05/17 12:56 Hct 36.2 % (34.1-44.9) 08/05/17 12:56 MCV 85.4 fl (79.4-94.8) 08/05/17 12:56 MCH 29.2 pg (25.6-32.2) 08/05/17 12:56 MCHC 34.3 g/dl (32.2-35.5) 08/05/17 12:56 RDW Std Deviation 44.6 fL (36.4-46.3) 08/05/17 12:56 Plt Count 177 K/mm3 (182-369) L 08/05/17 12:56 MPV 10.1 fl (9.4-12.3) 08/05/17 12:56 Neut % (Auto) 76.0 % (34.0-71.1) H 08/05/17 12:56 Lymph % (Auto) 18.4 % (19.3-51.7) L 08/05/17 12:56 [place] % (Auto) 4.4 % (4.7-12.5) L 08/05/17 12:56 Eos % (Auto) 0.7 (0.7-5.8) 08/05/17 12:56 Baso % (Auto) 0.2 % (0.1-1.2) 08/05/17 12:56 Neut # (Auto) 8.03 K/mm3 (1.56-6.13) H 08/05/17 12:56 Lymph # (Auto) 1.94 K/mm3 (1.18-3.74) 08/05/17 12:56 [place] # (Auto) 0.46 K/mm3 (0.24-0.36) H 08/05/17 12:56 Eos # (Auto) 0.07 K/mm3 (0.04-0.36) 08/05/17 12:56 Baso # (Auto) 0.02 K/mm3 (0.01-0.08) 08/05/17 12:56 BUN 9 mg/dL (7-18) 08/05/17 12:56 Creatinine 0.6 mg/dL (0.55-1.02) 08/05/17 12:56 Est Cr Clr Drug Dosing 112.38 mL/min 08/05/17 12:56 Estimated GFR (MDRD) > 60 mL/min (>60) 08/05/17 12:56 Uric Acid 5.6 mg/dL (2.6-6.0) 08/05/17 12:56 AST 20 U/L (15-37) 08/05/17 12:56 ALT 18 U/L (14-59) 08/05/17 12:56 Lactate Dehydrogenase 148 U/L (81-234) 08/05/17 12:56 Urine Color Yellow (Yellow) 08/05/17 13:05 Urine Appearance Slt cloudy (Clear) H 08/05/17 13:05 Urine pH 7.0 (5.0-8.0) 08/05/17 13:05 Ur Specific [place] 1.015 (1.005-1.030) 08/05/17 13:05 Urine Protein Negative (Negative) 08/05/17 13:05 Urine Glucose (UA) Negative (Negative) 08/05/17 13:05 Urine Ketones Negative (Negative) 08/05/17 13:05 Urine Occult Blood Negative (Negative) 08/05/17 13:05 Urine Nitrite Negative (Negative) 08/05/17 13:05 Urine Bilirubin Negative (Negative) 08/05/17 13:05 Urine Urobilinogen 0.2 (0.2-1.0) 08/05/17 13:05 Ur Leukocyte Esterase 1+ (Negative) H 08/05/17 13:05 Blood Type O POSITIVE 08/05/17 12:46 Gel Antibody Screen Negative 08/05/17 12:46 - Allergies Allergies/Adverse Reactions: Allergies Allergy/AdvReac Type Severity Reaction Status Date / Time [facility] [[facility] Allergy Cannot Verified 01/24/17 19:36 Remember - Anesthesia Plan Pre-Op Medication Ordered: Antacids - Acknowledgements Anesthesia Type Planned: Spinal Pt an Appropriate Candidate for the Planned Anesthesia: Yes Alternatives and Risks of Anesthesia Discussed w Pt/Guardian: Yes Pt/Guardian Understands and Agrees with Anesthesia Plan: Yes PreAnesthesia Questionnaire - Past Health History Medical/Surgical History: Denies Medical/Surgical History Gastrointestinal History: Reports: GERD 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: Endocrine/Metabolic History: Reports: Obesity/BMI 30+ - Past Surgical History HEENT Surgical History: Reports: Oral Surgery, Tonsillectomy GI Surgical History: Reports: Cholecystectomy Female Surgical History: Reports: Section (2010, 2011) - SUBSTANCE USE Smoking Status *Q: Never Smoker Recreational Drug Use History: No - HOME MEDS Home Medications: Home Meds PNV95/Ferrous Fumarate/FA [ Tablet] 1 each PO DAILY 08/05/17 [History] diphenhydrAMINE [Benadryl] 25 mg PO BEDTIME PRN 08/05/17 [History] - CURRENT (IN HOUSE) MEDS Current Meds: Current Medications Lactated Ringer's (Ringers, Lactated) 1,000 mls @ 125 mls/hr IV ASDIRECTED ABUNDIO Last Admin: 08/05/17 16:11 Dose: 125 mls/hr Oxytocin/Lactated Ringer's (Pitocin In Lr 10 Units/1,000 Ml) 10 unit in 1,000 mls @ 100 mls/hr IV ASDIRECTED ABUNDIO; Protocol Ondansetron HCl (Zofran) 4 mg IVPUSH Q4H PRN PRN Reason: Nausea/Vomiting Sodium Chloride (Saline Flush) 10 ml FLUSH ASDIRECTED PRN PRN Reason: Keep Vein Open Discontinued Medications Bupivacaine HCl/Dextrose (Marcaine 0.75% Spinal) Confirm Administered Dose 2 ml .ROUTE .STK-MED ONE Stop: 08/05/17 15:49 Cefazolin Sodium (Ancef) Confirm Administered Dose 2 gm .ROUTE .STK-MED ONE Stop: 08/05/17 15:46 Citric Acid/Sodium Citrate (Bicitra Solution) 30 ml PO ONETIME ONE Stop: 08/05/17 14:27 Last Admin: 08/05/17 16:03 Dose: 30 ml Citric Acid/Sodium Citrate (Bicitra Solution) 30 ml PO ONETIME ONE Stop: 08/05/17 14:30 Clindamycin Phosphate (Cleocin) Confirm Administered Dose 900 mg .ROUTE .STK- MED ONE Stop: 08/05/17 16:40 Clindamycin Phosphate 900 mg/ (Sodium Chloride) 106 mls @ 212 mls/hr IV ONETIME ONE Stop: 08/05/17 15:29 Gentamicin Sulfate 460 mg/ (Dextrose/Water) 111.5 mls @ 111.5 mls/hr IV ONETIME ONE Stop: 08/05/17 16:44 Last Admin: 08/05/17 16:04 Dose: 111.5 mls/hr Lactated Ringer's (Ringers, Lactated) 1,000 mls @ 125 mls/hr IV ASDIRECTED ABUNDIO Sodium Chloride (Normal Saline) Confirm Administered Dose 100 mls @ as directed .ROUTE .STK-MED ONE Stop: 08/05/17 16:41 Lactated Ringer's (Ringers, Lactated) Confirm Administered Dose 1,000 mls @ as directed .ROUTE .STK-MED ONE Stop: 08/05/17 17:17 Lactated Ringer's (Ringers, Lactated) Confirm Administered Dose 1,000 mls @ as directed .ROUTE .STK-MED ONE Stop: 08/05/17 17:19 Ketorolac Tromethamine (Toradol) Confirm Administered Dose 30 mg .ROUTE .STK- MED ONE Stop: 08/05/17 16:54 Metoclopramide HCl (Reglan) 10 mg IVPUSH ONETIME ONE Stop: 08/05/17 14:27 Last Admin: 08/05/17 16:01 Dose: 10 mg Metoclopramide HCl (Reglan) 10 mg IVPUSH ONETIME ONE Stop: 08/05/17 14:30 Morphine Sulfate (Duramorph Pf) Confirm Administered Dose 10 mg .ROUTE .STK-MED ONE Stop: 08/05/17 15:46 Oxytocin (Pitocin) Confirm Administered Dose 10 unit .ROUTE .STK-MED ONE Stop: 08/05/17 16:54 Phenylephrine HCl (Aristeo-Synephrine) Confirm Administered Dose 10 mg .ROUTE .STK- MED ONE Stop: 08/05/17 15:46 Sodium Chloride (Saline Flush) 10 ml FLUSH ASDIRECTED PRN PRN Reason: Keep Vein Open
--- NOTE | 2017-08-05 18:08 | PCM.OPNOTE ---
- General Post-Op/Procedure Note Date of Surgery/Procedure: 08/05/17 Operative Procedure(s): Repeat low transverse Findings: Mild amount of scar tissue present between the rectus and fascia. Mild scar tissue between the bladder and the uterus. Baby boy in a vertex presentation. APGARS of 5, 6, and 9. Weight of 7 lbs and 6 oz Pre Op Diagnosis: 39 weeks gestation. Hx of 2 prior c-sections. Gestational HTN Post-Op Diagnosis: Same Anesthesia Technique: Spinal Primary Surgeon: Vivienne Marcelino Secondary Surgeon: Yasmeen Garibay Anesthesia Provider: Lorenzo Coats Reason Business Operations Coordinator Was Necessary: Number of prior procedures, speed and safety of cases Pathology: Cord blood collected. Placenta discarded. Fluid Replacement, Intraop: 3,000 Output, Urine Amount: 30 EBL in mLs: 800 Complications: None Condition: Good Free Text/Narrative:: The risks, benefits, indications, potential complications, and alternatives were explained to the patient and informed consent obtained. After induction of anesthesia, the patient was placed in a supine position and then draped and prepped in the usual sterile manner. A Pfannenstiel incision was made and carried down through the subcutaneous tissue to the fascia. Fascial incision was made and extended transversely. The fascia was from the underlying rectus tissue superiorly and inferiorly. The peritoneum was identified and entered. Peritoneal incision was extended longitudinally. The utero-vesical peritoneal reflection was incised transversely and the bladder flap was bluntly freed from the lower uterine segment. A low transverse uterine incision was made sharply with a scalpel and extended bluntly in a cephalocaudad direction. A baby boy was delivered from vertex presentation with APGARS as above. After the umbilical cord was clamped and cut cord blood was obtained for evaluation. The placenta was removed intact and appeared normal. The uterus was not able to be exteriorized and so was cleared of clots while in the abdomen. The uterine incision was closed with running locked sutures of 0 Vicryl. Hemostasis was obtained by a second imbricating layer of 0 vicryl. The infracolic gutters were cleared of blood clots. The fascia was then reapproximated with running sutures of 0 Vicryl. The sucutaneous tissue was irrigated with sterile warm normal saline, hemostasis obtained with cautery. This layer was also closed with a running 0 vicry. The skin was reapproximated with running Subcuticular 4-0 monocryl sutures. Instrument, sponge, and needle counts were correct prior the abdominal closure and at the conclusion of the case.
[2017-08-05] MEDS ORDERED: Lanolin 100% Cream 7 GM Tube TOP PRN (18:21)
[2017-08-05] MEDS ORDERED: Naloxone 0.4 MG/ML SDV IVPUSH PRN (18:21)
[2017-08-05] MEDS ORDERED: diphenhydrAMINE 50 MG/ML SDV IVPUSH PRN (18:21)
[2017-08-05] MEDS ORDERED: Dextrose 5%-Lactated Ringers 1,000 ML IV SCH (18:21)
[2017-08-05] MEDS ORDERED: Ondansetron 4 MG/2 ML SDV IV PRN (18:21)
[2017-08-05] MEDS: Ketorolac 30 MG/ML SDV IVPUSH SCH (23:32)
[2017-08-06] MEDS: Ketorolac 30 MG/ML SDV IVPUSH SCH ×2 (05:37→12:00)
--- NOTE | 2017-08-06 06:30 | PCM.PNPP ---
- General Info Date of Service: 08/06/17 Functional Status: Reports: Pain Controlled, Tolerating Diet, Ambulating - Review of Systems General: Reports: No Symptoms Pulmonary: Reports: No Symptoms Cardiovascular: Reports: No Symptoms Gastrointestinal: Reports: Abdominal Pain (manageable with medications ) Genitourinary: Reports: No Symptoms Musculoskeletal: Reports: No Symptoms - Patient Data Vital Signs - Most Recent: Last Vital Signs Temp 36.5 C 08/05/17 18:30 Pulse 76 08/06/17 03:06 Resp 15 08/06/17 05:58 BP 123/75 08/06/17 02:36 Pulse Ox 100 08/06/17 05:58 Weight - Most Recent: 92.703 kg I&O - Last 24 Hours: Intake & Output 08/05/17 08/05/17 08/06/17 14:59 22:59 06:59 Intake Total 3000 1000 Output Total 210 900 Balance 2790 100 Lab Results - Last 24 Hours: Laboratory Results - last 24 hr 08/05/17 08/05/17 08/05/17 Range/Units 12:46 12:56 12:56 WBC 10.55 H (3.98-10.04) K/mm3 RBC 4.24 (3.98-5.22) M/mm3 Hgb 12.4 (11.2-15.7) gm/L Hct 36.2 (34.1-44.9) % MCV 85.4 (79.4-94.8) fl MCH 29.2 (25.6-32.2) pg MCHC 34.3 (32.2-35.5) g/dl RDW Std Deviation 44.6 (36.4-46.3) fL Plt Count 177 L (182-369) K/mm3 MPV 10.1 (9.4-12.3) fl Neut % (Auto) 76.0 H (34.0-71.1) % Lymph % (Auto) 18.4 L (19.3-51.7) % [place] % (Auto) 4.4 L (4.7-12.5) % Eos % (Auto) 0.7 (0.7-5.8) Baso % (Auto) 0.2 (0.1-1.2) % Neut # (Auto) 8.03 H (1.56-6.13) K/mm3 Lymph # (Auto) 1.94 (1.18-3.74) K/mm3 [place] # (Auto) 0.46 H (0.24-0.36) K/mm3 Eos # (Auto) 0.07 (0.04-0.36) K/mm3 Baso # (Auto) 0.02 (0.01-0.08) K/mm3 BUN 9 (7-18) mg/dL Creatinine 0.6 (0.55-1.02) mg/dL Est Cr Clr Drug Dosing 112.38 mL/min Estimated GFR (MDRD) > 60 (>60) mL/min Uric Acid 5.6 (2.6-6.0) mg/dL AST 20 (15-37) U/L ALT 18 (14-59) U/L Lactate Dehydrogenase 148 (81-234) U/L Urine Color (Yellow) Urine Appearance (Clear) Urine pH (5.0-8.0) Ur Specific [place] (1.005-1.030) Urine Protein (Negative) Urine Glucose (UA) (Negative) Urine Ketones (Negative) Urine Occult Blood (Negative) Urine Nitrite (Negative) Urine Bilirubin (Negative) Urine Urobilinogen (0.2-1.0) Ur Leukocyte Esterase (Negative) Blood Type O POSITIVE Gel Antibody Screen Negative 08/05/17 Range/Units 13:05 WBC (3.98-10.04) K/mm3 RBC (3.98-5.22) M/mm3 Hgb (11.2-15.7) gm/L Hct (34.1-44.9) % MCV (79.4-94.8) fl MCH (25.6-32.2) pg MCHC (32.2-35.5) g/dl RDW Std Deviation (36.4-46.3) fL Plt Count (182-369) K/mm3 MPV (9.4-12.3) fl Neut % (Auto) (34.0-71.1) % Lymph % (Auto) (19.3-51.7) % [place] % (Auto) (4.7-12.5) % Eos % (Auto) (0.7-5.8) Baso % (Auto) (0.1-1.2) % Neut # (Auto) (1.56-6.13) K/mm3 Lymph # (Auto) (1.18-3.74) K/mm3 [place] # (Auto) (0.24-0.36) K/mm3 Eos # (Auto) (0.04-0.36) K/mm3 Baso # (Auto) (0.01-0.08) K/mm3 BUN (7-18) mg/dL Creatinine (0.55-1.02) mg/dL Est Cr Clr Drug Dosing mL/min Estimated GFR (MDRD) (>60) mL/min Uric Acid (2.6-6.0) mg/dL AST (15-37) U/L ALT (14-59) U/L Lactate Dehydrogenase (81-234) U/L Urine Color Yellow (Yellow) Urine Appearance Slt cloudy H (Clear) Urine pH 7.0 (5.0-8.0) Ur Specific [place] 1.015 (1.005-1.030) Urine Protein Negative (Negative) Urine Glucose (UA) Negative (Negative) Urine Ketones Negative (Negative) Urine Occult Blood Negative (Negative) Urine Nitrite Negative (Negative) Urine Bilirubin Negative (Negative) Urine Urobilinogen 0.2 (0.2-1.0) Ur Leukocyte Esterase 1+ H (Negative) Blood Type Gel Antibody Screen Med Orders - Current: Current Medications Diphenhydramine HCl (Benadryl) 25 mg IVPUSH Q6H PRN PRN Reason: Itching or Nausea Docusate Sodium (Colace) 100 mg PO Q12H PRN PRN Reason: Constipation Emollient Ointment (Lansinoh Hpa) 0 gm TOP ASDIRECTED PRN PRN Reason: Sore Nipples Ibuprofen (Motrin) 600 mg PO Q6H PRN PRN Reason: mild pain or fever Ketorolac Tromethamine (Toradol) 30 mg IVPUSH Q6H [facility] Stop: 08/06/17 11:31 Last Admin: 08/06/17 05:37 Dose: 30 mg Naloxone HCl (Narcan) 0.1 mg IVPUSH SEECOMMENT PRN PRN Reason: Respiratory Depression Ondansetron HCl (Zofran) 4 mg IV Q8H PRN PRN Reason: Nausea/Vomiting Last Admin: 08/05/17 20:00 Dose: 4 mg Oxycodone/Acetaminophen (Percocet 325-5 Mg) 2 tab PO Q4H PRN PRN Reason: Pain (moderate 4-6) Discontinued Medications Bupivacaine HCl/Dextrose (Marcaine 0.75% Spinal) Confirm Administered Dose 2 ml .ROUTE .STK-MED ONE Stop: 08/05/17 15:49 Cefazolin Sodium (Ancef) Confirm Administered Dose 2 gm .ROUTE .STK-MED ONE Stop: 08/05/17 15:46 Citric Acid/Sodium Citrate (Bicitra Solution) 30 ml PO ONETIME ONE Stop: 08/05/17 14:27 Last Admin: 08/05/17 16:03 Dose: 30 ml Citric Acid/Sodium Citrate (Bicitra Solution) 30 ml PO ONETIME ONE Stop: 08/05/17 14:30 Last Admin: 08/05/17 21:50 Dose: Not Given Clindamycin Phosphate (Cleocin) Confirm Administered Dose 900 mg .ROUTE .STK- MED ONE Stop: 08/05/17 16:40 Lactated Ringer's (Ringers, Lactated) 1,000 mls @ 125 mls/hr IV ASDIRECTED [facility] [place] Last Admin: 08/05/17 16:11 Dose: 125 mls/hr Clindamycin Phosphate 900 mg/ (Sodium Chloride) 106 mls @ 212 mls/hr IV ONETIME ONE Stop: 08/05/17 15:29 Last Admin: 08/05/17 21:50 Dose: Not Given Gentamicin Sulfate 460 mg/ (Dextrose/Water) 111.5 mls @ 111.5 mls/hr IV ONETIME ONE Stop: 08/05/17 16:44 Last Admin: 08/05/17 16:04 Dose: 111.5 mls/hr Lactated Ringer's (Ringers, Lactated) 1,000 mls @ 125 mls/hr IV ASDIRECTED [facility] [place] Oxytocin/Lactated Ringer's (Pitocin In Lr 10 Units/1,000 Ml) 10 unit in 1,000 mls @ 100 mls/hr IV ASDIRECTED [facility] [place]; Protocol Sodium Chloride (Normal Saline) Confirm Administered Dose 100 mls @ as directed .ROUTE .STK-MED ONE Stop: 08/05/17 16:41 Lactated Ringer's (Ringers, Lactated) Confirm Administered Dose 1,000 mls @ as directed .ROUTE .STK-MED ONE Stop: 08/05/17 17:17 Lactated Ringer's (Ringers, Lactated) Confirm Administered Dose 1,000 mls @ as directed .ROUTE .STK-MED ONE Stop: 08/05/17 17:19 Dextrose/Lactated Ringer's (Dextrose 5%-Lactated Ringers) 1,000 mls @ 125 mls/ hr IV ASDIRECTED [facility] Stop: 08/06/17 02:20 Last Admin: 08/05/17 22:42 Dose: 125 mls/hr Ketorolac Tromethamine (Toradol) Confirm Administered Dose 30 mg .ROUTE .STK- MED ONE Stop: 08/05/17 16:54 Metoclopramide HCl (Reglan) 10 mg IVPUSH ONETIME ONE Stop: 08/05/17 14:27 Last Admin: 08/05/17 16:01 Dose: 10 mg Metoclopramide HCl (Reglan) 10 mg IVPUSH ONETIME ONE Stop: 08/05/17 14:30 Last Admin: 08/05/17 21:50 Dose: Not Given Morphine Sulfate (Duramorph Pf) Confirm Administered Dose 10 mg .ROUTE .STK-MED ONE Stop: 08/05/17 15:46 Ondansetron HCl (Zofran) 4 mg IVPUSH Q4H PRN PRN Reason: Nausea/Vomiting Oxytocin (Pitocin) Confirm Administered Dose 10 unit .ROUTE .STK-MED ONE Stop: 08/05/17 16:54 Phenylephrine HCl (Aristeo-Synephrine) Confirm Administered Dose 10 mg .ROUTE .STK- MED ONE Stop: 08/05/17 15:46 Sodium Chloride (Saline Flush) 10 ml FLUSH ASDIRECTED PRN PRN Reason: Keep Vein Open Sodium Chloride (Saline Flush) 10 ml FLUSH ASDIRECTED PRN PRN Reason: Keep Vein Open - Infant Interaction Disposition, : in Room with Family Infant Interaction: Holding Feeding: Breastfed Infant; Nursed Well Support Person: - Recovery Exam Fundal Tone: Firm Fundal Level: At Umbilicus Fundal Placement: Midline Lochia Amount: Small, Moderate Lochia Color: Rubra/Red Perineum Description: Intact, Minimal Bruising/Swelling Episiotomy/Laceration: None Bladder Status: Indwelling Catheter in Place Urinary Elimination: Indwelling Catheter - Exam General: Alert, Oriented, Cooperative Lungs: Clear to Auscultation, Normal Respiratory Effort Cardiovascular: Regular Rate, Regular Rhythm GI/Abdominal Exam: Soft, Tender (appropriate post op) Extremities: Normal Inspection Skin: Warm, Dry, Intact Wound/Incisions: Drainage (drainage on dressing which was removed and replaced ) - Problem List & Annotations (1) 39 weeks gestation of SNOMED Code(s): 40124566 Code(s): Z3A.39 - 39 WEEKS GESTATION OF Status: Acute Current Visit: Yes (2) History of SNOMED Code(s): 462840378 Code(s): Z98.891 - HISTORY OF UTERINE SCAR FROM PREVIOUS SURGERY Status: Acute Current Visit: Yes (3) Elevated blood pressure affecting in third trimester, antepartum SNOMED Code(s): 91232484, 93799794, 207814461 Code(s): O16.3 - UNSPECIFIED MATERNAL HYPERTENSION, THIRD TRIMESTER Status : Acute Current Visit: Yes (4) S/P repeat low transverse SNOMED Code(s): 746318851, 042437459, 572183147, 769229018 Code(s): Z98.891 - HISTORY OF UTERINE SCAR FROM PREVIOUS SURGERY Status: Acute Current Visit: Yes - Problem List Review Problem List Initiated/Reviewed/Updated: Yes - My Orders Last 24 Hours: My Active Orders 08/05/17 14:26 Communication Order [RC] ROUTINE Heart Tones [RC] PER UNIT ROUTINE Procedure Site Prep Instruct [RC] ASDIRECTED Urinary Catheter Assessment [RC] ASDIRECTED Verify Patient Consent Obtain [RC] PER UNIT ROUTINE Vital Signs [RC] PFP 08/05/17 14:29 Communication Order [RC] ROUTINE Heart Tones [RC] PER UNIT ROUTINE Procedure Site Prep Instruct [RC] ASDIRECTED Verify Patient Consent Obtain [RC] PER UNIT ROUTINE Vital Signs [RC] PFP 08/05/17 18:21 Activity as Tolerated [RC] .Routine Communication Order [RC] PER UNIT ROUTINE Communication Order [RC] PER UNIT ROUTINE Intake and Output [RC] Q4H May Shower [RC] PER UNIT ROUTINE Notify Provider Intake and Out [RC] ASDIRECTED RT Incentive Spirometry [RC] Q2HWA Vital Signs [RC] Q1HR Acetaminophen/oxyCODONE [Percocet 325-5 MG] 2 tab PO Q4H PRN Docusate Sodium [Colace] 100 mg PO Q12H PRN Lanolin [Lansinoh HPA] See Dose Instructions TOP ASDIRECTED PRN Naloxone [Narcan] 0.1 mg IVPUSH SEECOMMENT PRN Ondansetron [Zofran] 4 mg IV Q8H PRN diphenhydrAMINE [Benadryl] 25 mg IVPUSH Q6H PRN Assess Lochia [WOMSER] Per Unit Routine Assess Uterine Involution [WOMSER] Per Unit Routine Breast Pump [WOMSER] Per Unit Routine Heat Therapy [OM.PC] Per Unit Routine Peripheral IV Discontinue [OM.PC] Routine Sequential Compression Device [OM.PC] Per Unit Routine 08/05/17 23:30 Ketorolac [Toradol] 30 mg IVPUSH Q6H 08/05/17 Dinner Regular Diet [DIET] 08/06/17 05:11 CBC W/O DIFF,HEMOGRAM [HEME] AM 08/06/17 17:00 Ibuprofen [Motrin] 600 mg PO Q6H PRN 08/06/17 18:04 Urinary Catheter Removal [RC] Per Unit Routine - Assessment Assessment:: 32 y/o G3 now P3003 POD#1 from [facility] at 39 0/7 wks - Plan Plan:: [facility] * Routine cares * Encourage breast feeding * CBC this AM * Discharge home in 1-2 days
[2017-08-06] MEDS: Acetaminophen/oxyCODONE 325-5 MG Tab PO PRN ×2 (16:52→22:48)
[2017-08-07] MEDS: Ibuprofen 600 MG Tab PO PRN ×2 (03:27→12:55)
[2017-08-07] MEDS: Acetaminophen/oxyCODONE 325-5 MG Tab PO PRN ×3 (08:33→20:21)
[2017-08-07] MEDS: Docusate Sodium 100 MG Cap PO PRN (08:33)
--- NOTE | 2017-08-07 09:04 | PCM.PNPP ---
- General Info Date of Service: 08/07/17 Functional Status: Reports: Pain Controlled, Tolerating Diet, Ambulating, Urinating - Review of Systems General: Reports: No Symptoms Pulmonary: Reports: No Symptoms Cardiovascular: Reports: No Symptoms Gastrointestinal: Reports: No Symptoms Genitourinary: Reports: No Symptoms Musculoskeletal: Reports: No Symptoms Neurological: Reports: No Symptoms - Patient Data Vital Signs - Most Recent: Last Vital Signs Temp 36.9 C 08/07/17 02:18 Pulse 67 08/07/17 02:18 Resp 18 08/07/17 02:18 BP 129/79 08/07/17 02:18 Pulse Ox 98 08/07/17 02:18 Weight - Most Recent: 92.703 kg I&O - Last 24 Hours: Intake & Output 08/06/17 08/07/17 08/07/17 22:59 06:59 14:59 Intake Total 200 Output Total 400 Balance -200 Med Orders - Current: Current Medications Diphenhydramine HCl (Benadryl) 25 mg IVPUSH Q6H PRN PRN Reason: Itching or Nausea Docusate Sodium (Colace) 100 mg PO Q12H PRN PRN Reason: Constipation Last Admin: 08/07/17 08:33 Dose: 100 mg Emollient Ointment (Lansinoh Hpa) 0 gm TOP ASDIRECTED PRN PRN Reason: Sore Nipples Last Admin: 08/06/17 09:45 Dose: 1 applic Ibuprofen (Motrin) 600 mg PO Q6H PRN PRN Reason: mild pain or fever Last Admin: 08/07/17 03:27 Dose: 600 mg Naloxone HCl (Narcan) 0.1 mg IVPUSH SEECOMMENT PRN PRN Reason: Respiratory Depression Ondansetron HCl (Zofran) 4 mg IV Q8H PRN PRN Reason: Nausea/Vomiting Last Admin: 08/05/17 20:00 Dose: 4 mg Oxycodone/Acetaminophen (Percocet 325-5 Mg) 2 tab PO Q4H PRN PRN Reason: Pain (moderate 4-6) Last Admin: 08/07/17 08:33 Dose: 2 tab Discontinued Medications Bupivacaine HCl/Dextrose (Marcaine 0.75% Spinal) Confirm Administered Dose 2 ml .ROUTE .STK-MED ONE Stop: 08/05/17 15:49 Cefazolin Sodium (Ancef) Confirm Administered Dose 2 gm .ROUTE .STK-MED ONE Stop: 08/05/17 15:46 Citric Acid/Sodium Citrate (Bicitra Solution) 30 ml PO ONETIME ONE Stop: 08/05/17 14:27 Last Admin: 08/05/17 16:03 Dose: 30 ml Citric Acid/Sodium Citrate (Bicitra Solution) 30 ml PO ONETIME ONE Stop: 08/05/17 14:30 Last Admin: 08/05/17 21:50 Dose: Not Given Clindamycin Phosphate (Cleocin) Confirm Administered Dose 900 mg .ROUTE .STK- MED ONE Stop: 08/05/17 16:40 Lactated Ringer's (Ringers, Lactated) 1,000 mls @ 125 mls/hr IV ASDIRECTED [facility] Last Admin: 08/05/17 16:11 Dose: 125 mls/hr Clindamycin Phosphate 900 mg/ (Sodium Chloride) 106 mls @ 212 mls/hr IV ONETIME ONE Stop: 08/05/17 15:29 Last Admin: 08/05/17 21:50 Dose: Not Given Gentamicin Sulfate 460 mg/ (Dextrose/Water) 111.5 mls @ 111.5 mls/hr IV ONETIME ONE Stop: 08/05/17 16:44 Last Admin: 08/05/17 16:04 Dose: 111.5 mls/hr Lactated Ringer's (Ringers, Lactated) 1,000 mls @ 125 mls/hr IV ASDIRECTED [facility] Oxytocin/Lactated Ringer's (Pitocin In Lr 10 Units/1,000 Ml) 10 unit in 1,000 mls @ 100 mls/hr IV ASDIRECTED [facility]; Protocol Sodium Chloride (Normal Saline) Confirm Administered Dose 100 mls @ as directed .ROUTE .STK-MED ONE Stop: 08/05/17 16:41 Lactated Ringer's (Ringers, Lactated) Confirm Administered Dose 1,000 mls @ as directed .ROUTE .STK-MED ONE Stop: 08/05/17 17:17 Lactated Ringer's (Ringers, Lactated) Confirm Administered Dose 1,000 mls @ as directed .ROUTE .STK-MED ONE Stop: 08/05/17 17:19 Dextrose/Lactated Ringer's (Dextrose 5%-Lactated Ringers) 1,000 mls @ 125 mls/ hr IV ASDIRECTED [facility] Stop: 08/06/17 02:20 Last Admin: 08/05/17 22:42 Dose: 125 mls/hr Ketorolac Tromethamine (Toradol) Confirm Administered Dose 30 mg .ROUTE .STK- MED ONE Stop: 08/05/17 16:54 Ketorolac Tromethamine (Toradol) 30 mg IVPUSH Q6H [facility]UND[facility] Stop: 08/06/17 11:31 Last Admin: 08/06/17 12:00 Dose: 30 mg Metoclopramide HCl (Reglan) 10 mg IVPUSH ONETIME ONE Stop: 08/05/17 14:27 Last Admin: 08/05/17 16:01 Dose: 10 mg Metoclopramide HCl (Reglan) 10 mg IVPUSH ONETIME ONE Stop: 08/05/17 14:30 Last Admin: 08/05/17 21:50 Dose: Not Given Morphine Sulfate (Duramorph Pf) Confirm Administered Dose 10 mg .ROUTE .STK-MED ONE Stop: 08/05/17 15:46 Ondansetron HCl (Zofran) 4 mg IVPUSH Q4H PRN PRN Reason: Nausea/Vomiting Oxytocin (Pitocin) Confirm Administered Dose 10 unit .ROUTE .STK-MED ONE Stop: 08/05/17 16:54 Phenylephrine HCl (Aristeo-Synephrine) Confirm Administered Dose 10 mg .ROUTE .STK- MED ONE Stop: 08/05/17 15:46 Sodium Chloride (Saline Flush) 10 ml FLUSH ASDIRECTED PRN PRN Reason: Keep Vein Open Sodium Chloride (Saline Flush) 10 ml FLUSH ASDIRECTED PRN PRN Reason: Keep Vein Open - Infant Interaction Infant Disposition, : in Room with Family Infant Interaction: Holding Infant Infant Feeding: Breastfed ; Nursed Well Support Person: - Recovery Exam Fundal Tone: Firm Fundal Level: 1 Fingerbreadths Below Umbilicus Fundal Placement: Midline Lochia Amount: Small Lochia Color: Rubra/Red Perineum Description: Intact, Minimal Bruising/Swelling Episiotomy/Laceration: None Bladder Status: Voiding Urinary Elimination: Indwelling Catheter - Exam General: Alert, Oriented, Cooperative Lungs: Clear to Auscultation, Normal Respiratory Effort Cardiovascular: Regular Rate, Regular Rhythm GI/Abdominal Exam: Soft, Tender (appropriate post op ) Extremities: Normal Inspection Skin: Warm, Dry, Intact Wound/Incisions: Healing Well, No Drainage - Problem List & Annotations (1) 39 weeks gestation of SNOMED Code(s): 79326715 Code(s): Z3A.39 - 39 WEEKS GESTATION OF Status: Acute Current Visit: Yes (2) History of SNOMED Code(s): 373889596 Code(s): Z98.891 - HISTORY OF UTERINE SCAR FROM PREVIOUS SURGERY Status: Acute Current Visit: Yes (3) Elevated blood pressure affecting in third trimester, antepartum SNOMED Code(s): 12762992, 81205438, 046112370 Code(s): O16.3 - UNSPECIFIED MATERNAL HYPERTENSION, THIRD TRIMESTER Status : Acute Current Visit: Yes (4) S/P repeat low transverse SNOMED Code(s): 869010868, 041549212, 617438412, 660606589 Code(s): Z98.891 - HISTORY OF UTERINE SCAR FROM PREVIOUS SURGERY Status: Acute Current Visit: Yes - Problem List Review Problem List Initiated/Reviewed/Updated: Yes - My Orders Last 24 Hours: My Active Orders 08/06/17 17:00 Ibuprofen [Motrin] 600 mg PO Q6H PRN - Assessment Assessment:: 32 y/o G3 now P3003 POD#2 from [facility] at 39 0/7 wks - Plan Plan:: [facility] * Routine cares * Encourage breast feeding * BP's remain normal to mild range. Continue to monitor * Discharge home tomorrow
--- NOTE | 2017-08-07 12:25 | PCM48HPAN ---
Post Anesthesia Note - EVALUATION WITHIN 48HRS OF ANESTHETIC Vital Signs in Normal Range: Yes Patient Participated in Evaluation: Yes Respiratory Function Stable: Yes Airway Patent: Yes Cardiovascular Function Stable: Yes Hydration Status Stable: Yes Pain Control Satisfactory: Yes Nausea and Vomiting Control Satisfactory: Yes Mental Status Recovered: Yes
[2017-08-08] MEDS: Acetaminophen/oxyCODONE 325-5 MG Tab PO PRN ×2 (03:36→07:26)
[2017-08-08] MEDS: Docusate Sodium 100 MG Cap PO PRN (05:28)
--- NOTE | 2017-08-08 06:53 | PCM.PNPP ---
- General Info Date of Service: 08/08/17 Functional Status: Reports: Pain Controlled, Tolerating Diet, Ambulating, Urinating - Review of Systems General: Reports: No Symptoms Pulmonary: Reports: No Symptoms Cardiovascular: Reports: No Symptoms Gastrointestinal: Reports: No Symptoms Genitourinary: Reports: No Symptoms Musculoskeletal: Reports: No Symptoms Neurological: Reports: No Symptoms - Patient Data Vital Signs - Most Recent: Last Vital Signs Temp 36.7 C 08/08/17 03:01 Pulse 89 08/08/17 03:01 Resp 16 08/08/17 03:01 BP 125/83 08/08/17 03:01 Pulse Ox 97 08/08/17 03:01 Weight - Most Recent: 92.703 kg I&O - Last 24 Hours: Intake & Output 08/07/17 08/07/17 08/08/17 14:59 22:59 06:59 Intake Total 420 240 Balance 420 240 Med Orders - Current: Current Medications Diphenhydramine HCl (Benadryl) 25 mg IVPUSH Q6H PRN PRN Reason: Itching or Nausea Docusate Sodium (Colace) 100 mg PO Q12H PRN PRN Reason: Constipation Last Admin: 08/08/17 05:28 Dose: 100 mg Emollient Ointment (Lansinoh Hpa) 0 gm TOP ASDIRECTED PRN PRN Reason: Sore Nipples Last Admin: 08/06/17 09:45 Dose: 1 applic Ibuprofen (Motrin) 600 mg PO Q6H PRN PRN Reason: mild pain or fever Last Admin: 08/07/17 12:55 Dose: 600 mg Naloxone HCl (Narcan) 0.1 mg IVPUSH SEECOMMENT PRN PRN Reason: Respiratory Depression Ondansetron HCl (Zofran) 4 mg IV Q8H PRN PRN Reason: Nausea/Vomiting Last Admin: 08/05/17 20:00 Dose: 4 mg Oxycodone/Acetaminophen (Percocet 325-5 Mg) 2 tab PO Q4H PRN PRN Reason: Pain (moderate 4-6) Last Admin: 08/08/17 03:36 Dose: 1 tab Discontinued Medications Bupivacaine HCl/Dextrose (Marcaine 0.75% Spinal) Confirm Administered Dose 2 ml .ROUTE .STK-MED ONE Stop: 08/05/17 15:49 Cefazolin Sodium (Ancef) Confirm Administered Dose 2 gm .ROUTE .STK-MED ONE Stop: 08/05/17 15:46 Citric Acid/Sodium Citrate (Bicitra Solution) 30 ml PO ONETIME ONE Stop: 08/05/17 14:27 Last Admin: 08/05/17 16:03 Dose: 30 ml Citric Acid/Sodium Citrate (Bicitra Solution) 30 ml PO ONETIME ONE Stop: 08/05/17 14:30 Last Admin: 08/05/17 21:50 Dose: Not Given Clindamycin Phosphate (Cleocin) Confirm Administered Dose 900 mg .ROUTE .STK- MED ONE Stop: 08/05/17 16:40 Lactated Ringer's (Ringers, Lactated) 1,000 mls @ 125 mls/hr IV ASDIRECTED [facility] Last Admin: 08/05/17 16:11 Dose: 125 mls/hr Clindamycin Phosphate 900 mg/ (Sodium Chloride) 106 mls @ 212 mls/hr IV ONETIME ONE Stop: 08/05/17 15:29 Last Admin: 08/05/17 21:50 Dose: Not Given Gentamicin Sulfate 460 mg/ (Dextrose/Water) 111.5 mls @ 111.5 mls/hr IV ONETIME ONE Stop: 08/05/17 16:44 Last Admin: 08/05/17 16:04 Dose: 111.5 mls/hr Lactated Ringer's (Ringers, Lactated) 1,000 mls @ 125 mls/hr IV ASDIRECTED [facility] Oxytocin/Lactated Ringer's (Pitocin In Lr 10 Units/1,000 Ml) 10 unit in 1,000 mls @ 100 mls/hr IV ASDIRECTED [facility]; Protocol Sodium Chloride (Normal Saline) Confirm Administered Dose 100 mls @ as directed .ROUTE .STK-MED ONE Stop: 08/05/17 16:41 Lactated Ringer's (Ringers, Lactated) Confirm Administered Dose 1,000 mls @ as directed .ROUTE .STK-MED ONE Stop: 08/05/17 17:17 Lactated Ringer's (Ringers, Lactated) Confirm Administered Dose 1,000 mls @ as directed .ROUTE .STK-MED ONE Stop: 08/05/17 17:19 Dextrose/Lactated Ringer's (Dextrose 5%-Lactated Ringers) 1,000 mls @ 125 mls/ hr IV ASDIRECTED [facility] Stop: 08/06/17 02:20 Last Admin: 08/05/17 22:42 Dose: 125 mls/hr Ketorolac Tromethamine (Toradol) Confirm Administered Dose 30 mg .ROUTE .STK- MED ONE Stop: 08/05/17 16:54 Ketorolac Tromethamine (Toradol) 30 mg IVPUSH Q6H [facility] Stop: 08/06/17 11:31 Last Admin: 08/06/17 12:00 Dose: 30 mg Metoclopramide HCl (Reglan) 10 mg IVPUSH ONETIME ONE Stop: 08/05/17 14:27 Last Admin: 08/05/17 16:01 Dose: 10 mg Metoclopramide HCl (Reglan) 10 mg IVPUSH ONETIME ONE Stop: 08/05/17 14:30 Last Admin: 08/05/17 21:50 Dose: Not Given Morphine Sulfate (Duramorph Pf) Confirm Administered Dose 10 mg .ROUTE .STK-MED ONE Stop: 08/05/17 15:46 Ondansetron HCl (Zofran) 4 mg IVPUSH Q4H PRN PRN Reason: Nausea/Vomiting Oxytocin (Pitocin) Confirm Administered Dose 10 unit .ROUTE .STK-MED ONE Stop: 08/05/17 16:54 Phenylephrine HCl (Aristeo-Synephrine) Confirm Administered Dose 10 mg .ROUTE .STK- MED ONE Stop: 08/05/17 15:46 Sodium Chloride (Saline Flush) 10 ml FLUSH ASDIRECTED PRN PRN Reason: Keep Vein Open Sodium Chloride (Saline Flush) 10 ml FLUSH ASDIRECTED PRN PRN Reason: Keep Vein Open - Infant Interaction Infant Disposition, : [place] in Room with Family Interaction: Holding Feeding: Breastfed ; Nursed Well Support Person: - Recovery Exam Fundal Tone: Firm Fundal Level: 1 Fingerbreadths Below Umbilicus Fundal Placement: Midline Lochia Amount: Small Lochia Color: Rubra/Red Perineum Description: Intact, Minimal Bruising/Swelling Episiotomy/Laceration: None Bladder Status: Voiding Urinary Elimination: Indwelling Catheter - Exam General: Alert, Oriented, Cooperative Lungs: Clear to Auscultation, Normal Respiratory Effort Cardiovascular: Regular Rate, Regular Rhythm GI/Abdominal Exam: Soft, Non-Tender Extremities: Normal Inspection Skin: Warm, Dry, Intact Wound/Incisions: Healing Well, Drainage - Problem List & Annotations (1) 39 weeks gestation of SNOMED Code(s): 85309487 Code(s): Z3A.39 - 39 WEEKS GESTATION OF Status: Acute Current Visit: Yes (2) History of SNOMED Code(s): 596670378 Code(s): Z98.891 - HISTORY OF UTERINE SCAR FROM PREVIOUS SURGERY Status: Acute Current Visit: Yes (3) Elevated blood pressure affecting in third trimester, antepartum SNOMED Code(s): 26761358, 67278266, 870032215 Code(s): O16.3 - UNSPECIFIED MATERNAL HYPERTENSION, THIRD TRIMESTER Status : Acute Current Visit: Yes (4) S/P repeat low transverse SNOMED Code(s): 424109862, 616559625, 256969989, 159376112 Code(s): Z98.891 - HISTORY OF UTERINE SCAR FROM PREVIOUS SURGERY Status: Acute Current Visit: Yes - Problem List Review Problem List Initiated/Reviewed/Updated: Yes - Assessment Assessment:: 32 y/o G3 now P3003 POD#3 from [facility] at 39 0/7 wks - Plan Plan:: [facility] * Routine cares * Encourage breast feeding * BP's remain normal to mild range. Continue to monitor * Discharge home today
--- NOTE | 2017-08-08 06:54 | PCM.DCSUM1 ---
Discharge Summary - Discharge Data Discharge Date: 08/08/17 Discharge Disposition: Home, Self-Care 01 Condition: Good - Discharge Diagnosis/Problem(s) (1) 39 weeks gestation of SNOMED Code(s): 80866354 ICD Code: Z3A.39 - 39 WEEKS GESTATION OF Status: Acute Current Visit: Yes (2) History of SNOMED Code(s): 004463873 ICD Code: Z98.891 - HISTORY OF UTERINE SCAR FROM PREVIOUS SURGERY Status: Acute Current Visit: Yes (3) Elevated blood pressure affecting in third trimester, antepartum SNOMED Code(s): 90214561, 36500696, 598201812 ICD Code: O16.3 - UNSPECIFIED MATERNAL HYPERTENSION, THIRD TRIMESTER Status : Acute Current Visit: Yes (4) S/P repeat low transverse SNOMED Code(s): 279378450, 286729801, 573912015, 590386753 ICD Code: Z98.891 - HISTORY OF UTERINE SCAR FROM PREVIOUS SURGERY Status: Acute Current Visit: Yes - Patient Summary/Data Operative Procedure(s) Performed: Repeat low transverse Complications: None Consults: None Recommended Follow-up Testing/Procedures: Follow up in 1-2 weeks for incision check and BP check Hospital Course: 32 y/o at 39 0/7 wks presented to clinic for routine appointment. Found to have mild range BP's. Taken for unscheduled for this reason. This was uncomplicated. See operative note for full details. she did well and was discharged home on POD#3 - Patient Instructions Diet: Regular Diet as Tolerated Activity: No Lifting Over 10 Pounds Activity, Other: Pelvic Rest for 6 weeks Driving: Do Not Drive (While taking narcotics ) Showering/Bathing: May Shower, No Tub Bathing/Swimming Wound/Incision Care: Keep Operative Site/Wound Site Clean and Dry Notify Provider of: Fever, Increased Pain, Swelling and Redness, Drainage, Nausea and/or Vomiting - Discharge Plan Home Medications: Home Meds PNV95/Ferrous Fumarate/FA [ Tablet] 1 each PO DAILY 08/05/17 [History] diphenhydrAMINE [Benadryl] 25 mg PO BEDTIME PRN 08/05/17 [History] - Discharge Summary/Plan Comment DC Time >30 min.: No - Patient Data Vitals - Most Recent: Last Vital Signs Temp 36.7 C 08/08/17 03:01 Pulse 89 08/08/17 03:01 Resp 16 08/08/17 03:01 BP 125/83 08/08/17 03:01 Pulse Ox 97 08/08/17 03:01 Weight - Most Recent: 92.703 kg I&O - Last 24 hours: Intake & Output 08/07/17 08/07/17 08/08/17 14:59 22:59 06:59 Intake Total 420 240 Balance 420 240 Med Orders - Current: Current Medications Diphenhydramine HCl (Benadryl) 25 mg IVPUSH Q6H PRN PRN Reason: Itching or Nausea Docusate Sodium (Colace) 100 mg PO Q12H PRN PRN Reason: Constipation Last Admin: 08/08/17 05:28 Dose: 100 mg Emollient Ointment (Lansinoh Hpa) 0 gm TOP ASDIRECTED PRN PRN Reason: Sore Nipples Last Admin: 08/06/17 09:45 Dose: 1 applic Ibuprofen (Motrin) 600 mg PO Q6H PRN PRN Reason: mild pain or fever Last Admin: 08/07/17 12:55 Dose: 600 mg Naloxone HCl (Narcan) 0.1 mg IVPUSH SEECOMMENT PRN PRN Reason: Respiratory Depression Ondansetron HCl (Zofran) 4 mg IV Q8H PRN PRN Reason: Nausea/Vomiting Last Admin: 08/05/17 20:00 Dose: 4 mg Oxycodone/Acetaminophen (Percocet 325-5 Mg) 2 tab PO Q4H PRN PRN Reason: Pain (moderate 4-6) Last Admin: 08/08/17 03:36 Dose: 1 tab Discontinued Medications Bupivacaine HCl/Dextrose (Marcaine 0.75% Spinal) Confirm Administered Dose 2 ml .ROUTE .STK-MED ONE Stop: 08/05/17 15:49 Cefazolin Sodium (Ancef) Confirm Administered Dose 2 gm .ROUTE .STK-MED ONE Stop: 08/05/17 15:46 Citric Acid/Sodium Citrate (Bicitra Solution) 30 ml PO ONETIME ONE Stop: 08/05/17 14:27 Last Admin: 08/05/17 16:03 Dose: 30 ml Citric Acid/Sodium Citrate (Bicitra Solution) 30 ml PO ONETIME ONE Stop: 08/05/17 14:30 Last Admin: 08/05/17 21:50 Dose: Not Given Clindamycin Phosphate (Cleocin) Confirm Administered Dose 900 mg .ROUTE .[facility]- MED ONE Stop: 08/05/17 16:40 Lactated Ringer's (Ringers, Lactated) 1,000 mls @ 125 mls/hr IV ASDIRECTED [facility] Last Admin: 08/05/17 16:11 Dose: 125 mls/hr Clindamycin Phosphate 900 mg/ (Sodium Chloride) 106 mls @ 212 mls/hr IV ONETIME ONE Stop: 08/05/17 15:29 Last Admin: 08/05/17 21:50 Dose: Not Given Gentamicin Sulfate 460 mg/ (Dextrose/Water) 111.5 mls @ 111.5 mls/hr IV ONETIME ONE Stop: 08/05/17 16:44 Last Admin: 08/05/17 16:04 Dose: 111.5 mls/hr Lactated Ringer's (Ringers, Lactated) 1,000 mls @ 125 mls/hr IV ASDIRECTED [facility] Oxytocin/Lactated Ringer's (Pitocin In Lr 10 Units/1,000 Ml) 10 unit in 1,000 mls @ 100 mls/hr IV ASDIRECTED [facility]; Protocol Sodium Chloride (Normal Saline) Confirm Administered Dose 100 mls @ as directed .ROUTE .[facility]-MED ONE Stop: 08/05/17 16:41 Lactated Ringer's (Ringers, Lactated) Confirm Administered Dose 1,000 mls @ as directed .ROUTE .[facility]-MED ONE Stop: 08/05/17 17:17 Lactated Ringer's (Ringers, Lactated) Confirm Administered Dose 1,000 mls @ as directed .ROUTE .[facility]-MED ONE Stop: 08/05/17 17:19 Dextrose/Lactated Ringer's (Dextrose 5%-Lactated Ringers) 1,000 mls @ 125 mls/ hr IV ASDIRECTED [facility] Stop: 08/06/17 02:20 Last Admin: 08/05/17 22:42 Dose: 125 mls/hr Ketorolac Tromethamine (Toradol) Confirm Administered Dose 30 mg .ROUTE .[facility]- MED ONE Stop: 08/05/17 16:54 Ketorolac Tromethamine (Toradol) 30 mg IVPUSH Q6H [facility] Stop: 08/06/17 11:31 Last Admin: 08/06/17 12:00 Dose: 30 mg Metoclopramide HCl (Reglan) 10 mg IVPUSH ONETIME ONE Stop: 08/05/17 14:27 Last Admin: 08/05/17 16:01 Dose: 10 mg Metoclopramide HCl (Reglan) 10 mg IVPUSH ONETIME ONE Stop: 08/05/17 14:30 Last Admin: 08/05/17 21:50 Dose: Not Given Morphine Sulfate (Duramorph Pf) Confirm Administered Dose 10 mg .ROUTE .STK-MED ONE Stop: 08/05/17 15:46 Ondansetron HCl (Zofran) 4 mg IVPUSH Q4H PRN PRN Reason: Nausea/Vomiting Oxytocin (Pitocin) Confirm Administered Dose 10 unit .ROUTE .STK-MED ONE Stop: 08/05/17 16:54 Phenylephrine HCl (Aristeo-Synephrine) Confirm Administered Dose 10 mg .ROUTE .STK- MED ONE Stop: 08/05/17 15:46 Sodium Chloride (Saline Flush) 10 ml FLUSH ASDIRECTED PRN PRN Reason: Keep Vein Open Sodium Chloride (Saline Flush) 10 ml FLUSH ASDIRECTED PRN PRN Reason: Keep Vein Open
[2017-08-08 12:42] VITALS: BP 133/85
== END 2017-08-08 12:15 | disposition home or self-care (01) | DRG 766 ==
LOC: JD.OBCHECK 12:14 → JD.OB 12:14 → JD.OBCHECK 14:24 → JD.OB 14:25
PROVIDERS: ADMIT Obstetrics & Gynecology; ATTEND Obstetrics & Gynecology
PROC: 10D00Z1 Extraction of Products of Conception, Low, Open Approach (ICD-10-PCS; principal; 2017-08-05)
DX: O13.4 Gestational [pregnancy-induced] hypertension without significant proteinuria, complicating childbirth (principal); O34.211 Maternal care for low transverse scar from previous cesarean delivery; Z37.0 Single live birth; Z3A.39 39 weeks gestation of pregnancy; O99.214 Obesity complicating childbirth; E66.9 Obesity, unspecified; Z68.36 Body mass index [BMI] 36.0-36.9, adult
CPT/HCPCS: 36415; 59025; 81003; 82565; 83615; 84450; 84460; 84520; 84550; 85025; 85027; 86850; 86900; 86901; 94762; A9270-GY; J0690; J1580; J1885; J2270; J2370; J2405; J2590; J2765; J7030; J7042; J7060; J7120

== ENCOUNTER 2021-04-10 14:02 | Emergency (ER) | payer OTHER ==
[2021-04-10] MEDS ORDERED: HYDROmorphone 0.5 MG/0.5 ML Syringe IVPUSH ONE (14:29)
[2021-04-10] MEDS ORDERED: Metoclopramide 10 MG/2 ML SDV IVPUSH ONE (14:29)
[2021-04-10] MEDS ORDERED: Sodium Chloride 0.9% 10 ML Syringe FLUSH PRN (14:29)
[2021-04-10] MEDS ORDERED: Sodium Chloride 0.9% 1,000 ML IV SCH (14:30)
[2021-04-10 17:30] VITALS: BP 113/62; PULSE 108
== END 2021-04-10 17:30 | disposition home or self-care (01) ==
LOC: JD.ED 14:02
DX: A08.4 Viral intestinal infection, unspecified (principal); K21.9 Gastro-esophageal reflux disease without esophagitis; E66.9 Obesity, unspecified; Z68.34 Body mass index [BMI] 34.0-34.9, adult; Z88.8 Allergy status to other drugs, medicaments and biological substances
CPT/HCPCS: 36415; 80053; 81001; 81025; 83690; 85025; 86140; 96374; 96375; 99284; J1170; J2765; J7030

== ENCOUNTER 2023-07-04 03:22 | Emergency (ER) | payer OTHER ==
[2023-07-04] MEDS: Dicyclomine 10 MG Cap PO ONE (03:48)
[2023-07-04] MEDS: Lactated Ringers 1,000 ML IV ONE (03:48)
[2023-07-04 03:57] LABS: APPEARANCE,URINE CLEAR (Clear); BILIRUBIN,URINE NEGATIVE (Negative); COLOR,URINE YELLOW (Yellow); GLUCOSE,URINE NEGATIVE (Negative); KETONES,URINE NEGATIVE (Negative); LEUKOCYTE ESTERASE,URINE TRACE (Negative); NITRITE,URINE NEGATIVE (Negative); OCCULT BLOOD,URINE TRACE-INTACT (Negative); PROTEIN,URINE NEGATIVE (Negative); UROBILINOGEN,URINE 0.2 (0.2-1.0)
[2023-07-04 04:03] LABS: BACTERIA,URINE MODERATE /hpf (FEW); MUCUS,URINE MANY /hpf (FEW); RBC,URINE 0-5 /hpf (0-5)
[2023-07-04] MEDS: Metoclopramide 10 MG/2 ML SDV IVPUSH ONE (04:41)
[2023-07-04 05:41] VITALS: BP 128/88; PULSE 88
== END 2023-07-04 05:42 | disposition home or self-care (01) ==
LOC: JD.ED 03:22
DX: A05.9 Bacterial foodborne intoxication, unspecified (principal); I10 Essential (primary) hypertension; Z88.8 Allergy status to other drugs, medicaments and biological substances; Z90.49 Acquired absence of other specified parts of digestive tract
CPT/HCPCS: 81001; 81003; 81025; 87086; 96361; 96374; 99284; A9270; J2765; J7120